=== PATIENT | female | born 1940 | race Caucasian/White ===

== ENCOUNTER 2017-09-10 23:53 | Inpatient (IN) | payer MEDICARE, MEDICAID ==
[~2017-09-10] VITALS: Ht 157.5 cm; Wt 58.5 kg
[~2017-09-10 23:53] MED LIST: COLACE100 MG PO; DEPAKOTE ER250 MG PO; DEPAKOTE ER500 MG PO; HYDROCODONE-AP1 EAC6 PO; IMDUR 30 MG TAB30 M1 PO; IPRAT-ALBUT 0.5-3 ML INH; LAMISIL250 MG PO; LISINOPRIL20 MG PO; MAALOX MAXIMUM355 ML PO; METAMUCIL SUGA283 GM PO; MILK OF MA2400 MG/10 PO; MIRALAX17 GM PO; MUCINEX600 MG PO; NAMENDA 10 MG T10 MG PO; NEURONTIN 300300 M1 PO; NEXIUM40 MG PO; OLANZAPINE10 M2 IM; OLANZAPINE2.5 MG PO; REMERON15 MG PO; SYNTHROID25 MCG PO; TYLENOL325 MG PO; VITAMIN D31000 UNI2 PO; ZOCOR40 MG PO; ZYPREXA 5 MG TAB5 M1 PO
[2017-09-10 23:54] VITALS: BP 187/90
[2017-09-11] MEDS ORDERED: DUONEB 2.5-0.5 M3 ML (00:04)
[2017-09-11] MEDS ORDERED: ASPIR 8181 MG PO (00:06)
[2017-09-11] MEDS ORDERED: XANAX 0.25 MG0.25 MG PO (00:06)
[2017-09-11] MEDS ORDERED: FIBER LAX625 MG PO (00:07)
[2017-09-11] MEDS ORDERED: LASIX 40 MG TAB40 M2 PO (00:08)
[2017-09-11 00:20] LABS: ABSOLUTE EOSINOPHILS 0.1 thou/uL (0.0-0.7); ABSOLUTE LYMPHOCYTES 1.2 thou/uL (0.8-5.3); ABSOLUTE MONOCYTES 0.4 thou/uL (0.0-1.2); ABSOLUTE NEUTROPHILS 2.2 thou/uL (1.6-8.1); BASOPHILS 0.5 %; EOSINOPHILS 1.7 %; HEMATOCRIT 31.4 % (37.0-47.0); HEMOGLOBIN 10.4 gm/dL (12.0-15.0); LYMPHOCYTES 30.5 %; MCH 30.6 pg (26.0-34.0); MCHC 32.9 g/dL (28.0-37.0); MPV 9.9 fl. (7.2-11.1); NUCLEATED RBCS 0 /100WBC; PLATELET COUNT* 94 thou/uL (150-400); POLYS 57.3 %; RBC 3.38 mil/uL (4.20-5.00); RDW-CV 15.5 % (10.5-14.5); WBC 3.8 thou/uL (4.0-11.0)
[2017-09-11 00:25] LABS: ANION GAP 5 mmol/L (7-16); BUN 35 mg/dL (7-18); CALCIUM 8.6 mg/dL (8.5-10.1); CHLORIDE 105 mmol/L (98-107); CO2 32 mmol/L (21-32); CREATININE 1.7 mg/dL (0.6-1.3); GLUCOSE 93 mg/dL (70-99); POTASSIUM 4.1 mmol/L (3.5-5.1); SODIUM 142 mmol/L (136-145)
[2017-09-11 00:26] LABS: APTT 26.9 Seconds (25.0-31.3); INR 1.1; PROTIME 10.9 Seconds (9.20-11.50)
[2017-09-11 00:30] LABS: URINE BILIRUBIN NEGATIVE (Negative); URINE BLOOD NEGATIVE (Negative); URINE CLARITY CLEAR; URINE COLOR YELLOW; URINE GLUCOSE-RANDOM NEGATIVE (Negative); URINE KETONES NEGATIVE (Negative); URINE NITRITE-REFLEX NEGATIVE (Negative); URINE PROTEIN NEGATIVE (Negative); URINE SPECIFIC GRAVITY 1.025 (1.005-1.030); URINE UROBILINOGEN 0.2 E.U./dl (0.2-1.0)
[2017-09-11] MEDS ORDERED: LAMISIL250 MG (00:33)
[2017-09-11 00:35] LABS: URINE LEUKOCYTES-REFLEX 2+ (Negative)
[2017-09-11] MEDS ORDERED: UNICOMPLEX M TA1 TA1 PO (00:35)
[2017-09-11] MEDS ORDERED: HYDROCODONE-AP1 EAC6 PO (00:36)
[2017-09-11] MEDS ORDERED: PROBIOTIC1 EAC1 PO (00:37)
[2017-09-11 00:45] LABS: ALBUMIN 2.3 g/dL (3.4-5.0); ALKALINE PHOSPHATASE 518 U/L (46-116); CK-MB MASS < 0.5 ng/mL (<0.5-3.6); NT-PRO BRAIN NAT PEPTIDE 389 pg/mL (<300); SGOT 89 U/L (15-37); SGPT 62 U/L (30-65); TOTAL BILIRUBIN 0.6 mg/dL (<0.1-1.0); TOTAL PROTEIN 7.4 g/dL (6.4-8.2); TROPONIN-I LEVEL <0.06 ng/mL (<0.06)
[2017-09-11 00:49] LABS: SQUAMOUS 0-3 Few /LPF (0-3)
[2017-09-11 00:50] LABS: BACTERIA-REFLEX >30 Many /HPF (None Seen); CRYSTALS None Seen /LPF (None Seen); FINE GRANULAR CASTS 0-3 Few /LPF (None Seen); HYALINE CASTS 0-3 Few /LPF (None Seen); MUCUS 4-6 Moderate strn/LPF (None Seen); URINE RBC 3-10 Few /HPF (0-2); URINE WBC-REFLEX >25 Many /HPF (0-5); WBC CLUMPS Moderate (None Seen)
[2017-09-11 01:13] LABS: INFLUENZA A ANTIGEN None Detected (None Detect); INFLUENZA B ANTIGEN None Detected (None Detect)
[2017-09-11 02:47] VITALS: BP 114/56
[2017-09-11 02:50] VITALS: BP 158/67
[2017-09-11] MEDS ORDERED: GABAPENTIN 100100 MG PO (03:36)
[2017-09-11] MEDS ORDERED: LAMISIL250 MG PO (03:43)
[2017-09-11] MEDS ORDERED: PROTONIX 20 MG20 M1 PO (03:43)
[2017-09-11] MEDS ORDERED: LEVAQUIN 500 M500 M2 PO (03:44)
--- NOTE | 2017-09-11 05:41 | NUR ---
PATIENT ARRIVED VIA CART FROM ED AROUND 0240. PT A/OX1, PLEASANT. TELE MONITOR TRACING SINUS JONNY DOWN TO 50'S. VSS, AFEBRILE. ON 2L NC. IVF INFUSING ORDERED. INCONT AT TIMES. DENIES ANY PAIN. REPOSITIONS SELF IN BED. ADMISSION HX COMPELTED, PT SOMEWHAT POOR HISTORIAN. SEE CHARTING. CALL LIGHT IN REACH, BEDALARM ON, FALL PRECAUTIONS IN PLACE, WILL CONTINUE WITH PLAN OF CARE.
[2017-09-11 07:30] VITALS: BP 120/56
--- NOTE | 2017-09-11 11:26 | NUR ---
RECEIVED PT CARE 0700. PT IS ALERT AND ORIENTED X3-4. FORGETFUL AT TIMES. VSS. REEL MAN TRACING SB WITH 1ST DEGREE BLOCK. UP WITH ASSIST X1 TO BEDSIDE COMMODE. PATIENT VERY WEAK AND GAIT IS UNSTEADY. AM ASSESSMENT CHARTED. MEDS PER MAR. IVF INFUSING. TELEMETRY DISCONTINUED PER DR SIERRA. REEL MAN REMOVED AND RETURNED TO NURSE'S DESK. BED ALARM ON. CALL LIGHT WITHIN REACH. WILL CONTINUE TO MONITOR.
--- NOTE | 2017-09-11 11:28 | EKG ---
[place] [address] ELECTROCARDIOGRAM REPORT Name: NANDA CRUZ Room: [address] ADM IN .R.#: [id number] Admission: 09/11/17 Attend Phys: Robin Simms MD Discharge: Date of : 38 Report #: [id number] THIS REPORT FOR: //name// [facility] ED Test Date: 2017-09-11 Test Time: 00:04:10 Pat Name: NANDA CRUZ Department: Room: [facility] Gender: F Procedures Nurse: DINORA Nunez : 1940 Requested By: Asif Barcenas Order Number: [id number] MD: Dhaval Caballero Measurements Intervals [place] Rate: 56 P: -16 MI: 186 QRS: -7 QRSD: 89 T: 35 QT: 404 QTc: 390 Interpretive Statements Sinus rhythm Anteroseptal infarct, age indeterminate Compared to ECG 05/19/2017 21:36:00 Myocardial infarct finding now present Electronically Signed On 09-11-2017 11:28:31 DIRECTOR EPIDEMIOLOGY by Dhaval Caballero [email or web address] <ELECTRONICALLY SIGNED> By: Dhaval Caballero MD, [facility] 09/11/17 [id number] Dhaval Caballero MD, [facility] /EPI
--- NOTE | 2017-09-11 11:38 | NUR ---
CM ASSESSMENT: Spoke with staff at [facility], Pt is a LTC resident there on their dementia unit. Pt is w[facility] bound and staff assist with all ADLs. Supportive dtr that is invovled in POC. Staff informed that Pt had been doing well at their facility, goal is for Pt to return to [facility] at [facility]. Following.
[2017-09-11 12:13] VITALS: BP 145/63
--- NOTE | 2017-09-11 17:55 | NUR ---
ASSUMED CARE OF PATIENT AFTER TRANSFER FROM TERLEMETRY UNIT AT APPROXIMATELY 1530. ALERT AND OREINTED X2-3. PATIENT ORIENTED TO ROOM AND INSTRUCTED TO USE CALL LIGHT FOR NEEDS. PATIENT EASILY CONFUSED BUT REDIRECTS WITHOUT MUCH EFFORT. PATIENT HAS A NON PRODUCTIVE COUGH. NO COMPLAINTS OF PAIN OR NAUSEA AT THIS TIME. PATEINT NEEDED REINFORCEMENT ON HOW TO USE CALL LIGHT APPROPRIATELY RATHER THAN YELLING OUT FOR "HELP". HOURLY ROUNDS HAVE BEEN MAINTAINED. CALL LIGHT IS WITHIN REACH. NURSING WILL CONTINUE TO MONITOR.
--- NOTE | 2017-09-11 18:30 | NUR ---
PATIENT CALLED OUT WITH CALL LIGHT, I ANSWERED IT IMMEDIATELY. SHE ASKED IF SHE COULD GET SOMETHING FOR HER COUGH AND I SAID I WOULD CALL THE DOCTOR AND SEE WHAT HE COULD GIVE HER. SHE IMMEDIATELY BEGAN YELLING OUT FROM THE ROOM FOR HELP. I WENT TO THE ROOM AND ASKED HER WHAT SHE NEEDED, SHE STATED THAT SHE NEEDED TO USE THE BATHROOM. I EDUCATED HER ON HOW TO USE THE CALL LIGHT APPROPRIATELY FOR ASSISTANCE. SHE BECAME ANGRY AND STATED THAT SHE WAS GOING TO CRAWL OVER THE RAILS ON HER BED AND INTENTIONALLY FALL SO THAT SHE COULD JERICA ME. I ASSISTED HER TO THE BEDSIDE COMMODE AND BACK INTO BED. I AGAIN EDUCATED HER ON THE APPROPRIATE USE OF THE CALL LIGHT FOR ASSISTANCE AND PLACED THE BED ALARM ON.
[2017-09-11 20:30] VITALS: BP 186/85
[2017-09-12] VITALS: BP 124/74
--- NOTE | 2017-09-12 05:22 | NUR ---
PATIENT ALERT AND ORIENTED X 2, HISTORY OF DEMENTIA. VITALS STABLE. RA. NONPRODUCTIVE COUGH. LUNGS COARSE. PRN BREATHING TREATMENT GIVEN AT HS. UP WITH ASSIST X 1 TO BSC, NEEDS A LOT OF DIRECTION AND GUIDANCE WHEN AMBULATING. TYLENOL GIVEN FOR GENERALIZED PAIN. BED ALARM IN USE. PATIENT SLEPT COMFORTABLY THROUGH THE NIGHT. HOURLY ROUNDS. NURSING WILL CONTINUE TO MONITOR.
[2017-09-12 05:50] LABS: CALCIUM 8.5 mg/dL (8.5-10.1); CREATININE 0.9 mg/dL (0.6-1.3); POTASSIUM 4.4 mmol/L (3.5-5.1)
[2017-09-12 05:59] LABS: ABSOLUTE LYMPHOCYTES 0.7 thou/uL (0.8-5.3); ABSOLUTE MONOCYTES 0.2 thou/uL (0.0-1.2); ABSOLUTE NEUTROPHILS 1.6 thou/uL (1.6-8.1); BASOPHILS 0.5 %; EOSINOPHILS 0.9 %; HEMATOCRIT 28.7 % (37.0-47.0); HEMOGLOBIN 9.5 gm/dL (12.0-15.0); LYMPHOCYTES 28.6 %; MCH 30.7 pg (26.0-34.0); MCHC 33.1 g/dL (28.0-37.0); MCV 92.9 fL (80.0-100.0); MPV 10.4 fl. (7.2-11.1); NUCLEATED RBCS 0 /100WBC; PLATELET COUNT* 77 thou/uL (150-400); RBC 3.09 mil/uL (4.20-5.00); RDW-CV 15.3 % (10.5-14.5); WBC 2.6 thou/uL (4.0-11.0)
[2017-09-12 06:10] LABS: PREALBUMIN 12.2 mg/dL (18.0-35.7)
[2017-09-12 08:03] VITALS: BP 160/62
[2017-09-12 16:00] VITALS: BP 139/74
--- NOTE | 2017-09-12 17:23 | NUR ---
ASSUMED CARE OF PATIENT AFTER REPORT THIS MORNING. PATIENT AWAKE, ALERT, AND ORIENTED TO PERSON AND PLACE, UNAWARE OF TIME AND SITUATION. ORIENTED PATIENT TO TIME AND SITUATION. PHYSICAL ASSESSMENT COMPLETED AND CHARTED. NO COMPLAINTS OF PAIN THIS SHIFT. GIVEN SCHEDULED MEDICATIONS, SEE EMAR FOR DOCUMENTATION. VITAL SIGNS STABLE. OXYGEN SATURATION WITHIN NORMAL LIMITS ON ROOM AIR. PATIENT TRANSFERS AND AMBULATES WITH ASSISTANCE FROM STAFF. USES CALL LIGHT APPROPRIATELY AT TIMES, CALLS OUT FOR HELP FROM ROOM MOST OF THE TIME. SAT IN CHAIR AT BEDSIDE FOR MOST OF DAY. DENIES NEEDS AT THIS TIME. CALL LIGHT WITHIN REACH. NURSING WILL CONTINUE TO MONITOR.
[2017-09-12 21:30] VITALS: BP 168/75
--- NOTE | 2017-09-13 04:35 | NUR ---
ALERT AND ORIENTED TO NAME ONLY. DENIES PAIN OR NAUSEA. INCONTINENT OF URINE X2. BED ALARM ON. UP WITH 1 ASSIST GAIT BELT AND WALKER TO BEDSIDE COMMODE. PROGRESSING TOWARD DISCHARGE GOAL.
[2017-09-13 04:44] VITALS: BP 170/68
[2017-09-13 08:00] VITALS: BP 148/60
[2017-09-13 16:00] VITALS: BP 115/61
--- NOTE | 2017-09-13 16:52 | NUR ---
PATIENT ORIENTED TO PERSON. VITALS STABLE ON ROOM AIR. UP WITH ASSIST OF ONE TO THE BEDSIDE COMODE. IV PATENT AND SALINE LOCKED. PATIENT INCONTINENT AT TIMES. PATIENT HAS A DRY NON-PRODUCTIVE COUGH. BOWEL MOVEMENT YESTERDAY. REFUSES SCD'S. FALL PRECAUTIONS IN PLACE AND BED ALARM ON. HOURLY ROUNDS MAINTAINED THROUGHOUT THE SHIFT. CALL LIGHT WITHIN REACH. NURSING WILL CONTINUE TO MONITOR.
[2017-09-13 20:00] VITALS: BP 131/64
[2017-09-14 04:13] LABS: HEMATOCRIT 26.4 % (37.0-47.0); HEMOGLOBIN 8.9 gm/dL (12.0-15.0); MCHC 33.8 g/dL (28.0-37.0); MCV 91.8 fL (80.0-100.0); MPV 10.5 fl. (7.2-11.1); RBC 2.87 mil/uL (4.20-5.00); RDW-CV 15.1 % (10.5-14.5); WBC 2.5 thou/uL (4.0-11.0)
[2017-09-14 04:24] LABS: CALCIUM 8.5 mg/dL (8.5-10.1); CREATININE 0.9 mg/dL (0.6-1.3); MAGNESIUM 1.6 mg/dL (1.8-2.4); POTASSIUM 3.7 mmol/L (3.5-5.1)
--- NOTE | 2017-09-14 04:58 | NUR ---
ORIENTED TO SELF ONLY. UP WITH 1 ASSIST GAIT BELT AND WALKER TO BEDSIDE COMMMODE. RESTING QUIETLY IN BED ALL NIGHT. INCONTINENT OF URINE X1. BED ALARM ON. CALL LIGHT WITHIN REACH. WILL CONTINUE TO MONITOR.
[2017-09-14 08:05] VITALS: BP 151/74
[2017-09-14 16:00] VITALS: BP 156/74
--- NOTE | 2017-09-14 16:45 | NUR ---
ASSUMED CARE OF PATIENT AFTER MORNING REPORT. ALERT AND ORIENTED X1-2. ASSESSMENT COMPLETED AND CHARTED. VSS ON ROOM AIR. NO COMPLAINTS OF PAIN OR NAUSEA THIS SHIFT. PATIENT HAS BEEN WALKING TO THE BEDSIDE COMMODE WITH ASSISTANCE AND GAIT BELT. UP TO CHAIR THIS MORNING AND THIS AFTERNOON FOR MEALS. PATIENT HAS BEEN PLEASANT AND COOPERATIVE THROUGHOUT SHIFT. DAUGHTER CAME TO VISIT THIS AFTERNOON AND SPOKE TO DR NICHOLAS ABOUT QUESTIONS AND CONCERNS. HOURLY ROUNDS HAVE BEEN MAINTAINED. CALL LIGHT IS WITHIN REACH. NURSING WILL CONTINUE TO MONITOR.
[2017-09-14 20:15] VITALS: BP 156/72
--- NOTE | 2017-09-15 05:12 | NUR ---
ALERT TO SELF. UP WITH 1 ASSIST GAIT BELT AND WALKER TO BEDSIDE COMMODE. NO C/O PAIN OR NAUSEA. ANTIBIODIC CHANGED TO PO AND TOLERATED WELL. RESTING QUIETLY IN BED ALL NIGHT. CALL LIGHT WITHIN REACH. BED ALARM ON.
[2017-09-15 07:43] LABS: HEMATOCRIT 28.5 % (37.0-47.0); HEMOGLOBIN 9.5 gm/dL (12.0-15.0); MCH 30.8 pg (26.0-34.0); MCHC 33.3 g/dL (28.0-37.0); MCV 92.4 fL (80.0-100.0); MPV 9.2 fl. (7.2-11.1); RBC 3.09 mil/uL (4.20-5.00); RDW-CV 15.1 % (10.5-14.5); WBC 2.5 thou/uL (4.0-11.0)
[2017-09-15 08:00] VITALS: BP 187/84
--- NOTE | 2017-09-15 11:32 | NUR ---
PT.BEING DISCHARGED TODAY. NOTIFIED [facility] AND FAXED DISCHARGE ORDERS TO HER. THEIR WC VAN IS BOOKED UP TODAY. CM SET UP TRANSPORTATION WITH [facility] [phone] FOR 1200. CHART COPIED TO GO WITH PT. FELA WILL CALL REPORT. SHE ALSO SPOKE IWTH DAUGHTER,NANDA AdamsMariella ON THE PHONE AND DAUGHTER IS AWARE SHE WILL BE LEAVING.
[2017-09-15] MEDS ORDERED: CIPRO500 MG PO (11:33)
[2017-09-15] MEDS ORDERED: LAMISIL250 MG PO (11:34)
[2017-09-15] MEDS ORDERED: MILK OF MA2400 MG/10 PO (11:37)
[2017-09-15 11:39] VITALS: BP 187/84
== END 2017-09-15 12:42 | DRG 682 ==
LOC: M.ERS 23:53 → M.2W 09-11 01:25 → M.ORTHSURG 09-11 01:25 → M.TBA-ER 09-11 01:25 → M.2W 09-11 02:48 → M.ORTHSURG 09-11 16:07
PROVIDERS: Family Medicine; Internal Medicine; ADMIT Internal Medicine
DX: N17.9 Acute kidney failure, unspecified (principal); G93.40 Encephalopathy, unspecified; N39.0 Urinary tract infection, site not specified; R65.10 Systemic inflammatory response syndrome (SIRS) of non-infectious origin without acute organ dysfunction; G31.84 Mild cognitive impairment of uncertain or unknown etiology; N18.9 Chronic kidney disease, unspecified; I25.10 Atherosclerotic heart disease of native coronary artery without angina pectoris; J44.9 Chronic obstructive pulmonary disease, unspecified; D75.9 Disease of blood and blood-forming organs, unspecified; B35.1 Tinea unguium; Z88.0 Allergy status to penicillin; Z86.73 Personal history of transient ischemic attack (TIA), and cerebral infarction without residual deficits; Z88.2 Allergy status to sulfonamides; Z79.899 Other long term (current) drug therapy; Z86.19 Personal history of other infectious and parasitic diseases; I25.2 Old myocardial infarction; Z90.49 Acquired absence of other specified parts of digestive tract; Z28.21 Immunization not carried out because of patient refusal

== ENCOUNTER → 2017-11-03 | Outpatient (CLI) | payer MEDICARE, MEDICAID ==
[~2017-11-03] MED LIST changes: +ASPIR 8181 MG PO; +CIPRO500 MG PO; +DUONEB 2.5-0.5 M3 ML; +FIBER LAX625 MG PO; +GABAPENTIN 100100 MG PO; +LAMISIL250 MG; +LASIX 40 MG TAB40 M2 PO; +LEVAQUIN 500 M500 M2 PO; +PROBIOTIC1 EAC1 PO; +PROTONIX 20 MG20 M1 PO; +UNICOMPLEX M TA1 TA1 PO; +XANAX 0.25 MG0.25 MG PO
== END ==
LOC: M.CT 09:01
DX: I71.2 Thoracic aortic aneurysm, without rupture (principal); I25.10 Atherosclerotic heart disease of native coronary artery without angina pectoris; J90 Pleural effusion, not elsewhere classified; Z88.0 Allergy status to penicillin